=== PATIENT | female | born 1945 | race Caucasian/White ===

== ENCOUNTER 2017-10-02 15:36 | Emergency (ER) | payer MEDICARE, BC ==
--- NOTE | 2017-10-02 15:51 | UC ---
Skin Complaint HPI - HPI Summary HPI Summary: 72 yo female presents with insect bite to left ankle that occurred about 2 hours MANAGER CRISIS. She tells me that she was sitting on her porch reading a book when she felt a sharp pinch on the outside of her left ankle, but when she looked down she did not see a bug. Since that time has some swelling and significant pain in the area. She has not taken anything OTC. Denies fever, SOB, face/lip/ eye/throat swelling, or difficulty breathing. - History of Current Complaint Time Seen by Provider: 10/02/17 15:51 Stated Complaint: BEE STING Hx Obtained From: Patient Onset/Duration: Sudden Onset Skin Exposure Onset/Duration: Hours Ago Onset Severity: Moderate Current Severity: Severe Pain Intensity: 8 Pain Scale Used: 0-10 Numeric - Allergy/Home Medications Allergies/Adverse Reactions: Allergies Allergy/AdvReac Type Severity Reaction Status Date / Time amoxicillin [From Augmentin] Allergy Vomiting Verified 10/02/17 16:00 clavulanic acid Allergy Vomiting Verified 10/02/17 16:00 [From Augmentin] WHEAT AdvReac Unknown CELIAC Uncoded 02/25/16 12:50 DISEASE Home Medications: Home Medications dilTIAZem HCl [Diltiazem 24Hr Cd] 180 mg PO 10/02/17 [History] Review of Systems Constitutional: Negative Skin: Other - Bug bite left ankle Respiratory: Negative Cardiovascular: Negative Neurovascular: Negative Neurological: Negative Psychological: Negative All Other Systems Reviewed And Are Negative: Yes PMH/Surg Hx/FS Hx/Imm Hx Endocrine History: Dyslipidemia Cardiovascular History: Hypertension GI/ History: Gastroesophageal Reflux Other History Of: Negative For: Anticoagulant Therapy - Surgical History Surgical History: Yes Surgery Procedure, Year, and Place: 1979 HYSTERECTOMY, [facility] [place]. 2004 RIGHT SHOULDER SURGERY, [facility] [place]. 2012 LAPAROSCOPIC CHOLECYSTECTOMY, [facility] [place]. TEMPORAL ARTERITIS BIOPSY -W/CLIPS - MRI SAFE - Family History Known Family History: Positive: None - Social History Occupation: Retired Lives: With Family Alcohol Use: Daily Alcohol Amount: WINE W/ DINNER Substance Use Type: None Smoking Status (MU): Former Smoker Type: Cigarettes Amount Used/How Often: 1 PPD Length of Time of Smoking/Using Tobacco: 15 YEARS When Did the Patient Quit Smoking/Using Tobacco: 1971 Physical Exam - Summary Physical Exam Summary: GENERAL: NAD. WDWN. No pain distress. SKIN: Left ankle: lateral posterior malleolus with 1.0cm area of mild edema and moderate TTP. No open wounds or bite sofia appreciated. No streaking, bleeding, or drainage. NECK: Supple. Nontender. No lymphadenopathy. CHEST: No accessory muscle use. Breathing comfortably and in no distress. CV: Pulses intact PT and DP NEURO: Alert. CN II-XII grossly intact. PSYCH: Age appropriate behavior. Triage Information Reviewed: Yes Vital Signs: Vital Signs: Temp Pulse Resp BP Pulse Ox 97.7 F 50 16 143/63 100 10/02/17 15:52 10/02/17 15:52 10/02/17 15:52 10/02/17 15:52 10/02/17 15:52 Course/Dx - Course Course Of Treatment: Bug bite left ankle. Advised to elevate and ice the area. Take daily benadryl. - Diagnoses Provider Diagnoses: Bug bite left ankle Discharge - Sign-Out/Discharge Documenting (check all that apply): Patient Departure - Discharge Plan Condition: Stable Disposition: HOME Prescriptions: Triamcinolone 0.1% CREAM (NF) [Kenalog 0.1% Cream (NF)] 1 applic TOPICAL BID #1 tube Patient Education Materials: Insect Bite or Sting (ED) Referrals: Donavan Gold MD [Primary Care Provider] - Additional Instructions: If you develop a fever, shortness of breath, chest pain, new or worsening symptoms - please call your PCP or go to the ED. Your blood pressure was high at todays visit. Please see your primary provider within 4 weeks for recheck and re-evaluation. 1) Take daily benadryl 2) Apply ice to the area to reduce pain and swelling - Billing Disposition and Condition Condition: STABLE Disposition: Home
--- OUTSIDE RECORDS SUMMARY | 2017-10-02 15:53 | XMS REPORT ---
:1945 External Reference #:[id number] Author Organization [facility] Address [address] [place] [address] [address] [place] [address] Phone [phone] Care Team Providers Name Role Phone Donavan Gold MD Care Team Information Aws Solution Architect Unavailable Donavan Gold MD Primary Care Physician Unavailable Payers Type Date Identification Numbers Payment Provider Subscriber Medicare Primary Effective: Policy Number: Medicare Freida Guthrie 2008 [id number] PayID: [id number] [address] [place] [address] Medigap Part B Policy Number: [id number] [facility] Freida Guthrie Group Number: [id number] [address] PayID: [id number] [place] [address] Problems Date Description Provider Status Onset: 10/04/2016 Localized, primary osteoarthritis Daphnie Bennett M.D. Active Onset: 01/24/2015 Essential hypertension Prashanth Hayes M.D. Active Onset: 03/28/2013 Benign essential hypertension Prashanth Hayes M.D. Active Onset: 03/28/2013 Chest pain Prashanth Hayes M.D. Active Family History Date Family Member(s) Problem(s) Comments General Heart Disease General Cancer General Hypertension Social History Type Date Description Comments Marital Status Lives With Occupation Retired Cigarette Use Former Cigarette Smoker ETOH Use Consumes 1 glass of wine per day Smoking Patient is a former smoker quit in 1974 Recreational Drug Use Denies Drug Use Daily Caffeine Consumes on average 1 cup of regular coffee per day Exercise Type/Frequency Exercises regularly Allergies, Adverse Reactions, Alerts Date Description Reaction Status Severity Comments 03/21/2013 Augmentin active 03/28/2013 Wheat active 03/28/2013 Gluten active Medications Medication Date Status Form Strength Qnty SIG Indications Ordering Provider Dilt-XR 07/30/ Active Caps ER 120mg 90caps one a day I10 Prashanth Archer 2017 24HR Jarret Hayes Omeprazole / Active Capsules 20mg 30caps 1 po qd Unknown 0000 DR Aspirin Ec / Active Tablets DR 81mg 90tabs 1 po qd Unknown 0000 Colace / Active Capsules 100mg 60caps 1 po bid Unknown 0000 Nitrostat / Active Tablets 0.4mg 1bottl as needed Prashanth Archer 0000 Sub e Jarret Hayes Miralax / Active Powder 3350NF 238gm 17 gm Unknown 0000 every day mixed w/ 8 oz water/juic e Atorvastatin / Active Tablets 10mg one tab Shallish, Calcium 0000 daily MD Donavan Metoprolol / Active Tablets ER 100mg 1 by mouth Shallish, Succinate ER 0000 24HR bid MD Donavan Meloxicam 10/05/ Hx Tablets 7.5mg 30tabs 1 by mouth Daphnie 2016 - per day as Jarret Bennett 09/21/ needed 2018 [place] 04/25/ Hx Tablets 5-325mg 30tabs 1-2 by Angelina 2014 - mouth q4-6 Jarret Johnson 01/04/ hour as 2016 needed pain Topiramate 06/01/ Hx Caps 15mg 120cap 2-4 caps Blessing Daley 2013 - Sprinkle s by mouth Jon, 11/21/ every day M.D. 2013 at bedtime as directed Neurontin 11/16/ Hx Capsules 100mg 60caps 1-2 po qhs Huey 2012 - Demetrio, 03/27/ M.DJamil 2013 Lactulose 05/01/ Hx Blessing Daley 2012 - Jon, 11/22/ M.DJamil 2013 Pamelor 04/18/ Hx Capsules 10mg 90caps 1-3 caps Blessing Daley 2012 - by mouth Jon, 03/27/ every M.D. 2013 night as directed Amlodipine 03/20/ Hx Tablets 2.5mg 90tabs 1 po qd I10 Prashanth Archer Besylate 2012 - along with Jarret Hayes 07/30/ 5mg tablet 2017 Pamelor 12/27/ Hx Capsules 25mg 10caps 1 cap by Blessing Daley 2011 - mouth Jon, 05/01/ every day M.D. 2012 at bedtime Gabapentin 11/04/ Hx Capsules 300mg 120cap 2-4 tabs Blessing Daley 2011 - s by mouth Jon, 05/01/ every day M.D. 2012 at bedtime Metoprolol / Hx Tablets ER 50mg 1 tab Unknown Succinate ER 0000 - 24HR twice 09/22/ daily - 2017 Changed 07/30/2016 Dr. Hayes Amlodipine / Hx Tablets 5mg 90tabs 1 by mouth Unknown Besylate 0000 - every day 2.5mg 2017 tab(not taking anymore) Crestor / Hx Tablets 10mg 30tabs 1 by mouth Unknown 0000 - every day 2015 Medications Administered in Office Medication Date Status Form Strength Qnty SIG Indications Ordering Provider Technetium TC Administered Injection Prashanth DJamil 99M 017 Jarret Hayes Tetrofosmin, Per Unit Dose Up To 40 Millicuries Technetium TC Administered Injection Prashanth DJamil 99M 014 Jarret Hayes Tetrofosmin, Per Unit Dose Up To 40 Millicuries Vital Signs Date Vital Result Comment 09/23/2017 Height 60 inches 5'0" Weight 104.00 lb Heart Rate 52 /min BP Systolic Sitting 148 mmHg Lue reg cuff BP Diastolic Sitting 78 mmHg Lue reg cuff BP Systolic Standing 146 mmHg Lue BP Diastolic Standing 78 mmHg Lue Respiratory Rate 14 /min BMI (Body Mass Index) 20.3 kg/m2 Ejection Fraction 66% 09/07/11 11/03/2016 Height 60 inches 5'0" Weight 103.00 lb Heart Rate 56 /min BP Systolic 125 mmHg BP Diastolic 55 mmHg Body Temperature 97.6 F Pain Level 2 BMI (Body Mass Index) 20.1 kg/m2 10/04/2016 Height 60 inches 5'0" Weight 103.00 lb Heart Rate 60 /min BP Systolic 115 mmHg BP Diastolic 64 mmHg Respiratory Rate 15 /min Body Temperature 97.4 F Pain Level 10 BMI (Body Mass Index) 20.1 kg/m2 09/03/2016 Height 60 inches 5'0" Weight 103.00 lb no shoes Heart Rate 58 /min BP Systolic Sitting 132 mmHg Rue reg cuff BP Diastolic Sitting 66 mmHg Rue reg cuff BP Systolic Standing 124 mmHg Rue reg cuff BP Diastolic Standing 64 mmHg Rue reg cuff Respiratory Rate 15 /min BMI (Body Mass Index) 20.1 kg/m2 07/30/2016 Height 60 inches 5'0" Weight 103.00 lb without shoes Heart Rate 58 /min BP Systolic Sitting 140 mmHg Rue reg cuff BP Diastolic Sitting 60 mmHg Rue reg cuff BP Systolic Standing 142 mmHg Rue reg cuff BP Diastolic Standing 78 mmHg Rue reg cuff Respiratory Rate 16 /min BMI (Body Mass Index) 20.1 kg/m2 Ejection Fraction 66% date 09/07/11 ECHO 02/04/2016 Height 61 inches 5'1" Weight 104.00 lb w/o shoes Heart Rate 64 /min reg BP Systolic Sitting 116 mmHg Rue, reg cuff BP Diastolic Sitting 54 mmHg Rue, reg cuff BP Systolic Standing 116 mmHg Rue BP Diastolic Standing 60 mmHg Rue Respiratory Rate 16 /min BMI (Body Mass Index) 19.6 kg/m2 Ejection Fraction 66% as of 09/07/11 echo 01/24/2015 Height 61 inches 5'1" Weight 104.00 lb w/o shoes Heart Rate 52 /min regreg BP Systolic Sitting 114 mmHg Lue, reg cuff BP Diastolic Sitting 66 mmHg Lue, reg cuff BP Systolic Standing 112 mmHg Lue BP Diastolic Standing 66 mmHg Lue Respiratory Rate 16 /min BMI (Body Mass Index) 19.6 kg/m2 Ejection Fraction 66% as of 09/07/11 echo 06/10/2014 Height 61 inches 5'1" Weight 104.00 lb Pain Level 3 BMI (Body Mass Index) 19.6 kg/m2 05/09/2014 Height 61 inches 5'1" Weight 105.00 lb Pain Level 2 BMI (Body Mass Index) 19.8 kg/m2 05/03/2014 Height 61 inches 5'1" Weight 105.00 lb Body Temperature 96.2 F BMI (Body Mass Index) 19.8 kg/m2 04/26/2014 Height 61 inches 5'1" Weight 105.00 lb Heart Rate 60 /min BP Systolic Sitting 122 mmHg left arm, reg cuff BP Diastolic Sitting 60 mmHg left arm, reg cuff BP Systolic Standing 120 mmHg left arm, reg cuff BP Diastolic Standing 62 mmHg left arm, reg cuff Respiratory Rate 16 /min BMI (Body Mass Index) 19.8 kg/m2 04/25/2014 Height 61 inches 5'1" Weight 103.00 lb Heart Rate 74 /min BP Systolic 128 mmHg BP Diastolic 76 mmHg BMI (Body Mass Index) 19.5 kg/m2 01/15/2014 Height 61.25 inches 5'1.25" Weight 103.38 lb Heart Rate 60 /min BP Systolic Sitting 118 mmHg BP Diastolic Sitting 60 mmHg Respiratory Rate 16 /min BMI (Body Mass Index) 19.4 kg/m2 01/03/2014 Height 61.25 inches 5'1.25" Weight 104.00 lb no shoes Heart Rate 52 /min BP Systolic Sitting 132 mmHg LA, reg cuff BP Diastolic Sitting 74 mmHg LA, reg cuff BP Systolic Standing 128 mmHg LA BP Diastolic Standing 68 mmHg LA Respiratory Rate 14 /min BMI (Body Mass Index) 19.5 kg/m2 11/29/2013 Height 61.25 inches 5'1.25" Weight 103.00 lb Heart Rate 48 /min BP Systolic Sitting 128 mmHg Ra reg cuff BP Diastolic Sitting 68 mmHg Ra reg cuff BP Systolic Standing 130 mmHg Ra BP Diastolic Standing 70 mmHg Ra Respiratory Rate 16 /min BMI (Body Mass Index) 19.3 kg/m2 06/01/2013 Height 67 inches 5'7" Weight 103.00 lb Heart Rate 67 /min BP Systolic Sitting 130 mmHg BP Diastolic Sitting 70 mmHg Respiratory Rate 16 /min BMI (Body Mass Index) 16.1 kg/m2 04/04/2013 Height 61 inches 5'1" Weight 103.00 lb Body Temperature 97.7 F BMI (Body Mass Index) 19.5 kg/m2 03/28/2013 Height 61.50 inches 5'1.50" Weight 108.00 lb without shoes Heart Rate 59 /min sit and reg BP Systolic Sitting 136 mmHg BP Diastolic Sitting 66 mmHg BP Systolic Standing 138 mmHg BP Diastolic Standing 68 mmHg Respiratory Rate 15 /min BMI (Body Mass Index) 20.1 kg/m2 Results Description No Information Procedures Date CPT Code Description Status 09/23/2017 92931 EKG Tracing & Interpretation Completed 07/27/2017 50796 Dest Lesion Each Addl Lesion 2 Through 14 Each Completed 07/27/2017 43243 Destruction ALL Benign Or Premalignant Lesion (Other Completed Than [place] 08/13/2016 83720 Stress Test Completed 08/13/2016 25736 Myocardial Perfusion Imaging Tomographic (Spect) Completed Multiple Studies 07/30/2016 86065 EKG Tracing & Interpretation Completed 02/04/2016 80778 EKG Tracing & Interpretation Completed 04/30/2014 91478 Neuroplasty &/Or Transposition; Ulnar Nerve AT Elbow Completed 04/30/2014 04874 Neuroplasty &/Or Transposition; Ulnar Nerve AT Elbow Completed 04/26/2014 23596 EKG Tracing & Interpretation Completed 01/15/2014 96130 Needle Electromyography Each Extremity W/Related Completed Paraspinal Areas 01/15/2014 82708 Nerve Conduction 07-08 Studies Completed 12/12/2013 08881 Stress Test Completed 12/12/2013 55695 Myocardial Perfusion Imaging Tomographic (Spect) Completed Multiple Studies 11/29/2013 83873 EKG Tracing & Interpretation Completed 03/21/2013 99187 Xray Knee 3 Views Completed 03/21/2013 17938 Xray Knee 3 Views Completed 11/16/2012 75943 Rad Exam; Hip Unilat Completed 11/16/2012 02155 Rad Exam; Pelvis Completed 08/15/2012 49618 EKG, Interpretation Only Completed 04/06/2012 11944 EKG Tracing & Interpretation Completed Encounters Type Date Location Provider CPT E/M Dx Office Visit 09/23/2017 [facility] Prashanth Hayes 65430 I20.8 9:45a Echo Wheat R00.2 Office Visit 08/17/2017 11:10a [facility] [place] [address] L57.0 L56.8 D22.71 L85.3 Office Visit 07/27/2017 10:10a [facility] [place] [address] L71.8 Z08 Z85.828 L57.0 Office Visit 11/03/2016 9:30a [facility] Daphnie Bennett M.D. 67960 M25.562 C.M.A. S83.422A M76.32 M17.12 Office Visit 10/04/2016 1:30p [facility] Daphnie Bennett M.D. 46087 M25.562 C.M.A. S83.422A M76.32 M17.12 Office Visit 09/03/2016 10:30a [facility] Prashanth Hayes 37989 I10 M.D. R07.9 R00.2 Office Visit 07/30/2016 9:45a [facility] Prashanth Hayes, 79657 I10 M.D. R07.9 R00.2 Office Visit 02/04/2016 10:30a [facility] Prashanth Hayes, 94414 I10 M.D. R00.2 I20.8 Office Visit 01/24/2015 3:00p [facility] Prashanth Hayes, 66691 I10 M.D. R00.2 R55 Office Visit 04/26/2014 2:45p [facility] Prashanth Hayes, 27540 401.1 Communication Manager M.D. V72.81 Office Visit 04/25/2014 9:30a [facility] Angelina Johnson, 13346 354.2 Of Jermain Wheat Office Visit 01/03/2014 2:30p [facility] Prashanth Hayes, 01935 786.50 Communication Manager M.D. 401.1 Office Visit 11/29/2013 2:30p [facility] Prashanth Hayes, 47113 786.50 Communication Manager M.D. 401.1 Office Visit 06/01/2013 8:45a [facility] Blessing Webb, 64505 333.1 Services Of [facility] M.D. 350.1 Office Visit 04/04/2013 11:45a [facility] Berny Bryson 74354 836.0 Of Jacinto PereiraP.AJamil-C Office Visit 03/28/2013 10:30a [facility] Prashanth Hayes, 12467 786.50 Communication Manager M.D. 401.1 Office Visit 03/21/2013 2:45p [facility] Berny Bryson 83907 836.0 Of Janusz Pereira.P.A.-C 836.0 Office Visit 11/16/2012 2:00p [facility] Huey Atkinson, 39371 724.3 Jermain Wheat Office Visit 10/12/2012 1:00p [facility] Prashanth Hayes, 74697 786.50 Communication Manager M.D. 401.9 Office Visit 04/18/2012 8:45a [facility] Blessing Webb, 89471 350.1 Services Of Echo Wheat 784.0 333.1 Office Visit 04/06/2012 12:15p [facility] Prashanth Hayes, 49289 413.9 Echo Wheat 401.1 Office Visit 11/05/2011 2:30p [facility] Blessing Webb, 51835 350.1 Services Of Echo Wheat 333.1 Plan of Care Future Appointment(s):01/16/2018 11:15 am - Arslan Davis M.D. at [facility]09/23/2017 - Prashanth Hayes M.D.I20.8 Other forms of angina pectorisFollow up:1 yearR00.2 Palpitations
[2017-10-02 15:59] VITALS: BP 143/63
== END 2017-10-02 16:22 | disposition home or self-care (01) ==
LOC: UCEAST 15:36
DX: S90.562A Insect bite (nonvenomous), left ankle, initial encounter (principal); W57.XXXA Bitten or stung by nonvenomous insect and other nonvenomous arthropods, initial encounter; Y93.89 Activity, other specified; Y92.008 Other place in unspecified non-institutional (private) residence as the place of occurrence of the external cause; I10 Essential (primary) hypertension; Z88.1 Allergy status to other antibiotic agents; Z88.0 Allergy status to penicillin; Z87.891 Personal history of nicotine dependence
CPT/HCPCS: 99212; G0463

== ENCOUNTER 2019-05-08 09:34 | Observation (INO) | payer MEDICARE, BC ==
[~2019-05-08 09:34] MED LIST: NS 0.9% 1000 ML** 1,000 ML IV SCH
[2019-05-08] MEDS ORDERED: ceFAZolin VIAL 1 GM in NS *SYRINGE * * 10 ML ONE (10:00)
[2019-05-08] MEDS ORDERED: ceFAZolin* 2 GM* ONE DOSE (Duplex) IVPB (10:00)
[2019-05-08] MEDS ORDERED: Diazepam TAB(*) 5 MG PO ONE (10:00)
[2019-05-08 10:28] LABS: ABS Eosinophils 0.1 10^3/ul (0-0.6); ABS Lymphocytes 1.2 10^3/ul (1.0-4.8); ABS Monocytes 0.5 10^3/ul (0-0.8); ABS Neutrophils 3.7 10^3/ul (1.5-7.7); Eosinophil % 1.3 %; Hematocrit 42 % (35-47); Hemoglobin 14.4 g/dL (12.0-16.0); Mean Corpuscular HGB Conc 34 g/dL (31-36); Mean Corpuscular Hemoglobin 35 pg (27-31); Mean Corpuscular Volume 103 fL (80-97); Platelet Count 200 10^3/uL (150-450); Red Cell Distribution Width 12 % (10-15); White Blood Count 5.5 10^3/uL (3.5-10.8)
[2019-05-08] MEDS ORDERED: Diazepam TAB(*) 5 MG ONE (10:31)
[2019-05-08 10:48] LABS: BUN/Creatinine Ratio 32.1 (8-20); Calcium 9.7 mg/dL (8.6-10.3); EGFR African American 83.2 (>60); EGFR Non-African American 68.7 (>60); Potassium 4.2 mmol/L (3.5-5.0)
[2019-05-08] MEDS ORDERED: Lidocaine 1% INJ* 10 MG/ML 30 ML SDV ONE (11:00)
[2019-05-08] MEDS ORDERED: fentaNYL* 50 MCG/ML 2 ML VIAL (100 MCG VIAL) ONE (11:00)
[2019-05-08] MEDS ORDERED: Midazolam* 1 MG/ML 5 ML VIAL (5 MG) ONE (11:00)
[2019-05-08] MEDS ORDERED: Clindamycin 600 MG/D5W BAG(*) 600 MG/50 ML BAG IV ONE (11:00)
[2019-05-08] MEDS ORDERED: oxyCODONE/Acetamin 5/325 MG* TAB PO PRN (12:04)
[2019-05-08] MEDS: Clindamycin CAP* 150 MG PO SCH ×2 (12:50→20:46)
[2019-05-08] MEDS: Acetaminophen TAB* 325 MG PO PRN ×2 (12:50→20:46)
[2019-05-08] MEDS ORDERED: Atorvastatin* 10 MG TAB PO SCH (17:00)
[2019-05-08] MEDS ORDERED: Polyethylene Glycol 3350* 17 GM PACKET PO SCH (18:00)
[2019-05-08] MEDS: Docusate CAP* 100 MG PO SCH (20:44)
[2019-05-08] MEDS: Metoprolol Succinate XL TAB* 100 MG PO SCH (20:57)
[2019-05-08] MEDS ORDERED: Ondansetron TAB* 4 MG PO PRN (21:00)
--- NOTE | 2019-05-08 21:00 | OP ---
CC: Dr. Donavan Gold OPERATIVE REPORT: DATE OF OPERATION: 05/08/19 DATE OF : 41 SURGEON: Prashanth Hayes MD ANESTHESIA: Local anesthesia with conscious sedation. PRE-OP DIAGNOSES: 1. Sick sinus syndrome. 2. Bradycardia. POST-OP DIAGNOSES: 1. Sick sinus syndrome. 2. Bradycardia. OPERATIVE PROCEDURE: Dual-chamber pacemaker implantation. ESTIMATED BLOOD LOSS: Nil. COMPLICATIONS: None. INDICATIONS: The patient is a 74-year-old female with a long history of bradycardia, who has been covington ving episodes of atrial fibrillation, also episodes of lightheadedness and dizziness. Permanent pace maker was recommended for maximization of medical therapy. DESCRIPTION OF PROCEDURE: The patient was in a fasting state. Informed consent had been obtained pr ior to the procedure. All labs were reviewed. The patient was placed supine on the procedure table. Her left pectoral area was cleaned and draped in the usual fashion. 1% lidocaine was used for loca l anesthesia. Under ultrasound guidance, the axillary vein was entered via Seldinger technique and a guidewire was placed. A second guidewire was placed using a retained sheath device. A 4-cm incisio n was made in the pectoral area. Blunt dissection was carried down to the pectoral fascia and a pock et was fashioned for the pacemaker. Over the first guidewire, a 7-Algerian sheath introducer was placed through which a right ventricular lead was placed to the RV septum. The right ventricular lead is a Medtronic model 5076, serial number [id number], had an R-wave sensitivity of 7.5, impedance 967 ohms , threshold 0.9 volts at 0.5 milliseconds. The ventricular lead was sutured to the pectoral fascia. Over the second guidewire, a 7-Algerian sheath introducer was placed through which a right atrial lead was advanced to the high right atrium. The right atrial lead is a Medtronic model 5076, serial numb er [id number], had a P-wave sensitivity of 1.7, impedance 954 ohms, threshold 1 volts at 0.4 millisec onds. The atrial lead was sutured to the pectoral fascia. The pocket was flushed. A generator was attached appropriately to the atrial and ventricular leads. The generator is a Med[employer]life model W1DR0 1, serial number [id number]. The device was placed in the pocket. The surgical incision was closed in 3 layers. [id number]/[facility] [place] #: [id number]
[2019-05-09] MEDS: Clindamycin CAP* 150 MG PO SCH (05:26)
[2019-05-09] MEDS: Acetaminophen TAB* 325 MG PO PRN (05:29)
[2019-05-09] MEDS: Metoprolol Succinate XL TAB* 100 MG PO SCH (08:56)
[2019-05-09] MEDS: Docusate CAP* 100 MG PO SCH (08:56)
[2019-05-09] MEDS ORDERED: Diltiazem CD CAP* 120 MG PO SCH (09:00)
[2019-05-09] MEDS ORDERED: Cholecalciferol TAB* 1000 UNITS PO SCH (09:00)
[2019-05-09] MEDS ORDERED: Pantoprazole TAB * 40 MG TAB PO SCH (09:00)
[2019-05-09] MEDS ORDERED: Riboflavin (B2) (NF) 100 MG TAB PO SCH (09:00)
--- NOTE | 2019-05-09 11:18 | DS ---
CC: Dr. Prashanth Hayes; Dr. Donavan Gold DISCHARGE SUMMARY: DATE OF ADMISSION: DATE OF DISCHARGE: 05/09/19 REASON FOR ADMISSION: Elective implantation of dual chamber pacer. HISTORY OF PRESENT ILLNESS: See admission H and P. Ms. 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 She was admitted for elective pacer implantation to allow for optimal beta-bob therapy with her history of coronary artery disease. On the day of discharge, the patient was free of chest pain, has not slept well because of mild tenderness at the incision site, but denies shortness of breath or pleuritic chest pain, and she walked to the bathroom well and around her room this morning without problems. OUTPATIENT MEDICATIONS: Included: 1. Diltiazem XR 120 mg a day. 2. Metoprolol ER 100 mg b.i.d. 3. Omeprazole 20 mg a day. 4. Aspirin 81 mg a day. 5. Colace 200 mg b.i.d. 6. Nitroglycerin p.r.n. 7. MiraLAX. 8. Atorvastatin 10 mg a day. 9. Vitamin D. 10. Vitamin B12. ALLERGIES: AUGMENTIN, WHEAT, GLUTEN. PAST MEDICAL HISTORY: Includes: 1. Paroxysmal atrial fibrillation, documented sinus bradycardia at 44 beats a minute and frequent PACs on Apple watch on the above meds. 2. Hypertension. 3. Dyslipidemia. 4. Essential tremor. 5. Degenerative arthritis. 6. 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 SOCIAL HISTORY: The patient is retired, lives with her , distant cigarette user, a glass of wine at night. FAMILY HISTORY: Positive for coronary disease. HOSPITAL COURSE: The patient underwent dual chamber pacemaker implantation yesterday, 05/08/19, complicated by a small pneumothorax on the left. Today, chest x-ray was repeated, small pneumothorax in place, stable or possibly slightly increased. Pacemaker interrogation done today confirms she has a Medtronic dual chamber MRI compatible system (Patricia XT DR MRI [id number]). She was programmed in AAIR/ DDDR mode at a rate of 60 beats a minute. She atrially paces 93% of the time, ventricularly paces 0.1% of the time. Pacing and sensing thresholds are excellent. Atrial sensing 1.4 millivolts with an atrial lead impedance of 513 ohms and an atrial pacing threshold of 0.5 volts at 0.4 milliseconds. RV ventricular sensing 7 millivolts, ventricular lead impedance 665 ohms, and ventricular pacing threshold of 0.5 volts at 0.4 milliseconds. No dysrhythmias noted overnight. Labs on admission: White count 5.5, hematocrit 42, mean cell volume 103. Sodium 137, potassium 4.2, chloride 100, bicarbonate 29, BUN 26, creatinine 0.81, glucose 103. Chest x-ray as above. Small pneumothorax. The lungs are hyperinflated. Leads show good placement, atrial and ventricular. In conclusion, Freida Guthrie is a 74-year-old woman with coronary artery disease. History of loss of consciousness. The patient is status post dual chamber pacemaker implantation for a history of tachy-jonathon syndrome, syncope in the distant past. Pacer implant complicated by small pneumothorax, for which he is asymptomatic. The patient will be discharged on her outpatient medications as well as Clindamycin 150mg TID for 4 days. She will get a chest x-ray in the morning to follow up on her pneumothorax for Dr. Hayes to follow up on, and she will be seen in 1 week's time in our office for wound check. The patient and her were informed of the pneumothorax, and they understand the symptoms to look for and what to call about. Instructions were given for wound care as well as postop limitations of the left upper extremity. Today, the patient's condition is stable and she is going to be discharged to home as above. [id number]/[facility] #: [id number] JUAN
[2019-05-09 11:49] VITALS: BP 116/48
== END 2019-05-09 11:45 | disposition home or self-care (01) ==
LOC: CHICATH 09:34 → MEDTELE 12:04
PROVIDERS: ADMIT Specialist; ATTEND Specialist
DX: I49.5 Sick sinus syndrome (principal); I48.0 Paroxysmal atrial fibrillation; J93.83 Other pneumothorax; I10 Essential (primary) hypertension; I49.1 Atrial premature depolarization; E78.5 Hyperlipidemia, unspecified; G25.0 Essential tremor; M19.90 Unspecified osteoarthritis, unspecified site; I25.10 Atherosclerotic heart disease of native coronary artery without angina pectoris; Z79.899 Other long term (current) drug therapy; Z79.82 Long term (current) use of aspirin; Z87.891 Personal history of nicotine dependence; R94.31 Abnormal electrocardiogram [ECG] [EKG]
CPT/HCPCS: 33208; 36415; 71045; 71046; 80048; 85025; 93005; 99156; 99157; A9270-GY; C1785; C1892; C1898; G0378; J0690; J2250; J3010